=== PATIENT | male | born 1970 | race Caucasian/White ===

== ENCOUNTER 2017-01-15 05:59 | Emergency (ER) | payer OTHER ==
[2017-01-15 06:09] VITALS: BP 139/90
[2017-01-15] MEDS ORDERED: PREDNISONE 20 MG TABLET PO ONE (07:54)
--- NOTE | 2017-01-15 07:55 | ER Document Report ---
ED Neck/Back Problem - General Time seen by provider: 07:43 Mode of Arrival: Ambulatory Information source: Patient TRAVEL OUTSIDE OF THE [place] IN LAST 30 DAYS: No - HPI Patient complains to provider of: Pain Onset: Other - see HPI note Onset: Sudden Associated symptoms: Like prior neck/back pain, Numbness/tingling, Radiation to leg Similar symptoms previously: Yes Recently seen / treated by doctor: No <ALAN MOODY - Last Filed: 01/15/17 08:54> <PRAMOD SAHA - Last Filed: 01/15/17 11:17> - General Chief Complaint: Back Pain Stated Complaint: BACK PAIN Notes: Patient is a 46 year old male presenting to the emergency department for back pain and leg numbness. Patient states that around 02:00 or 03:00 this morning he woke up with severe pain in his back. Patient could not get comfortable or find any position to relieve his pain. Patient states he had to use the bathroom and after he had a bowel movement his pain subsided. Patient states he then had some numbness from his knee down into his large toe on his left leg after his bowel movement. Patient usually takes Tylenol for his back pain. Patient states he had similar pain to this right before he had back surgery. Patient had a discectomy in October of 2015. Patient states they trimmed up his bulging disc. Patient also has had 2 left shoulder surgeries. Patient's numbness fits the pattern of L5. Patient states his pain is minimal at time of exam however, he still is experiencing some numbness in his left leg into his foot/toes. Patient has no known allergies. Patient has started going to [facility] and has had 1 physical and some preliminary lab work done at this facility. (ALAN MOODY) - Related Data Allergies/Adverse Reactions: No Known Allergies Allergy (Unverified 01/15/17 06:05) Past Medical History - General Information source: Patient, Relative - spouse - Social History Smoking Status: Unknown if Ever Smoked Family History: None Patient has suicidal ideation: No Patient has homicidal ideation: No - Medical History Medical History: Negative Past Surgical History: Reports: Hx Orthopedic Surgery - discectomy 10/2015, shoulder surgery x2 <ALAN MOODY - Last Filed: 01/15/17 08:54> Review of Systems - Review of Systems Constitutional: No symptoms reported EENT: No symptoms reported Cardiovascular: No symptoms reported Respiratory: No symptoms reported Gastrointestinal: No symptoms reported Genitourinary: No symptoms reported Male Genitourinary: No symptoms reported Musculoskeletal: See HPI Skin: No symptoms reported Hematologic/Lymphatic: No symptoms reported Neurological/Psychological: See HPI, Numbness -: Yes All other systems reviewed and negative <ALAN MOODY - Last Filed: 01/15/17 08:54> Physical Exam - Vital signs Interpretation: Normal - General General appearance: Appears well, Alert In distress: Mild - HEENT Head: Normocephalic, Atraumatic Eyes: Normal Pupils: PERRL Mucous membranes: Moist - Respiratory Respiratory status: No respiratory distress Chest status: Nontender Breath sounds: Normal Chest palpation: Normal - Cardiovascular Rhythm: Regular Heart sounds: Normal auscultation Murmur: No - Abdominal Inspection: Normal Distension: No distension Bowel sounds: Normal Tenderness: Nontender Organomegaly: No organomegaly - Back Back: Normal, Nontender - Extremities General upper extremity: Normal inspection, Normal ROM, Normal strength General lower extremity: Normal inspection, Normal ROM, Normal strength - Neurological Neuro grossly intact: Yes Cognition: Normal Orientation: AAOx4 [place] Coma Scale Eye Opening: Spontaneous [place] Coma Scale Verbal: Oriented [place] Coma Scale Motor: Obeys Commands [place] Coma Scale Total: 15 Speech: Normal - Psychological Associated symptoms: Normal affect, Normal mood - Skin Skin Temperature: Warm Skin Moisture: Dry <ALAN MOODY - Last Filed: 01/15/17 08:54> <PRAMOD SHAA - Last Filed: 01/15/17 11:17> - Vital signs Vitals: Temp Pulse Resp BP Pulse Ox 98 F 18 L 98 H 139/90 H 99 01/15/17 06:05 01/15/17 06:05 01/15/17 06:05 01/15/17 06:05 01/15/17 06:05 Course - Laboratory Result Diagrams: 01/15/17 08:18 01/15/17 08:18 <ALAN MOODY - Last Filed: 01/15/17 08:54> - Laboratory Result Diagrams: 01/15/17 08:18 01/15/17 08:18 <PRAMOD SAHA - Last Filed: 01/15/17 11:17> - Vital Signs Vital signs: Temp Pulse Resp BP Pulse Ox 98.0 F 74 18 139/90 H 98 01/15/17 06:07 01/15/17 06:07 01/15/17 06:07 01/15/17 06:07 01/15/17 06:07 - Laboratory Laboratory results interpreted by me: 01/15/17 01/15/17 08:18 08:18 Eosinophils % 8.2 H Glucose 124 H AST 74 H ALT 113 H Discharge <ALAN MOODY - Last Filed: 01/15/17 08:54> <PRAMOD SAHA - Last Filed: 01/15/17 11:17> - Discharge Clinical Impression: Lumbosacral radiculopathy at L4, Low back pain radiating down leg Condition: Stable Disposition: HOME, SELF-CARE Additional Instructions: Herniated Disc: You have a herniated disc. A vertebral disc is a tissue "cushion" between the bones of the spine. When it herniates, a portion bulges out. If it pushes on a nerve, it can cause radiation of pain, numbness, weakness, or tingling in the area served by the affected nerve. Most herniated discs do NOT need surgery. In fact about one-quarter of normal, symptom-free people have at least one herniated disc. Symptoms will usually go away after a few weeks. Rest on a firm surface. Avoid lying on your stomach. If on your back, put a pillow under the knees. If on your side, bend your legs and put a pillow between the knees. Temporarily avoid bending, lifting, and other activity that increases pain. Depending on the severity of symptoms, we may prescribe antiinflammatory medicine such as ibuprofen, corticosteroids, muscle relaxers, or narcotic pain medication. Gentle heat may be used intermittently along the spine. Spinal manipulation or adjustment is usually not recommended for disk herniation. Exercises to strengthen your back and abdominal muscles are prescribed as your symptoms improve. Your doctor will advise you on the proper care at each stage in your recovery. You may be better in a few days -- or healing may take several weeks. Return or call the doctor if you develop severe unrelieved pain, increasing weakness or numbness, or loss of bowel or bladder control. START THE PREDNISONE TOMORROW. FOLLOW UP WITH A SPINE DOCTOR TO DISCUSS TREATMENT OPTIONS. RETURN TO THE EMERGENCY ROOM IF ANY NEW OR WORSENING SYMPTOMS. Prescriptions: Oxycodone HCl/Acetaminophen [Percocet 5-325 mg Tablet] 1 - 2 tab PO ASDIR PRN # 15 tablet PRN Reason: Prednisone [Deltasone 10 mg Tablet] 10 mg PO ASDIR PRN #21 tablet PRN Reason: Scribe Attestation: 01/15/17 11:17 I personally performed the services described in the documentation, reviewed and edited the documentation which was dictated to the scribe in my presence, and it accurately records my words and actions. (PRAMOD SAHA) Scribe Documentation - Scribe Written by Scribnuno:: Alan Moody 01/15/17 9:00 acting as scribe for :: Сергей <ALAN MOODY - Last Filed: 01/15/17 08:54>
[2017-01-15 08:33] LABS: ABSOLUTE BASOPHILS # (AUTO) 0.1 10^3/uL (0.0-0.2); ABSOLUTE EOSINOPHILS # (AUTO) 0.4 10^3/uL (0.0-0.6); ABSOLUTE LYMPHOCYTES (AUTO) 1.5 10^3/uL (0.5-4.7); ABSOLUTE MONOCYTES (AUTO) 0.4 10^3/uL (0.1-1.4); EOSINOPHILS % (AUTO) 8.2 % (0-6); HEMATOCRIT 42.9 % (37.9-51.0); HEMOGLOBIN 14.9 g/dL (13.5-17.0); HGB HCT DIFFERENCE 1.8; LYMPHOCYTES % (AUTO) 28.8 % (13-45); MEAN CORPUSCULAR HEMOGLOBIN 31.2 pg (27.0-33.4); MEAN CORPUSCULAR HGB CONC 34.8 g/dL (32.0-36.0); MEAN CORPUSCULAR VOLUME 90 fl (80-97); MONOCYTES % (AUTO) 6.7 % (3-13); RED BLOOD COUNT 4.78 10^6/uL (4.35-5.55); RED CELL DISTRIBUTION WIDTH 12.7 % (11.5-14.0); SEGMENTED NEUTROPHILS % (AUTO) 55.3 % (42-78); WHITE BLOOD COUNT 5.3 10^3/uL (4.0-10.5)
[2017-01-15 08:46] LABS: APPEARANCE,URINE CLEAR; BILIRUBIN,URINE NEGATIVE (NEGATIVE); GLUCOSE, URINE NEGATIVE (NEGATIVE); KETONES,URINE NEGATIVE (NEGATIVE); LEUKOCYTE ESTERASE,URINE NEGATIVE (NEGATIVE); NITRITE,URINE NEGATIVE (NEGATIVE); PROTEIN,URINE NEGATIVE (NEGATIVE); UROBILINOGEN,URINE NEGATIVE mg/dL (<2.0)
[2017-01-15 08:47] LABS: ALANINE AMINOTRANSFERASE 113 U/L (21-72); ALBUMIN 4.5 g/dL (3.5-5.0); ALKALINE PHOSPHATASE 66 U/L (38-126); ANION GAP 13 (5-19); ASPARTATE AMINO TRANSFERASE 74 U/L (17-59); BILIRUBIN,DIRECT 0.2 mg/dL (0.0-0.4); BILIRUBIN,TOTAL 0.7 mg/dL (0.2-1.3); BLOOD UREA NITROGEN 11 mg/dL (7-20); CALCIUM 9.8 mg/dL (8.4-10.2); CARBON DIOXIDE 27 mmol/L (22-30); CHLORIDE 105 mmol/L (98-107); CREATININE RESULT 0.84 mg/dL (0.52-1.25); GLUCOSE 124 mg/dL (75-110); POTASSIUM 4.6 mmol/L (3.6-5.0); TOTAL PROTEIN 7.5 g/dL (6.3-8.2)
== END 2017-01-15 11:29 | disposition home or self-care (01) ==
LOC: ER 05:59
DX: M54.17 Radiculopathy, lumbosacral region (principal); M54.9 Dorsalgia, unspecified; M54.2 Cervicalgia; R20.0 Anesthesia of skin
CPT/HCPCS: 99284; 36415; 85025; 80053; 81001; 72158; A9577; J7512